=== PATIENT | male | born 1975 | race Caucasian/White ===

== ENCOUNTER 2019-07-19 09:27 | Emergency (ER) | payer SELFPAY ==
[2019-07-19 09:31] VITALS: BP 135/94
[2019-07-19] MEDS ORDERED: IPRATROPIUM/ALBUTEROL 0.5-2.5 MG/3 ML AMPUL NEB ONE (09:35)
--- NOTE | 2019-07-19 09:41 | ER Document Report ---
HPI - HPI Pain Level: Denies Notes: 44-year-old male presents to the ED for evaluation of a cough that he has been experiencing for the last 3 weeks. States the cough is productive. Denies a history of asthma or seasonal allergies. Tried [id number] Mucinex without relief. No primary care provider. Patient is a active smoker. Denies fevers, chills, chest pain,palpitations, shortness of breath, dyspnea, nausea, vomiting, diarrhea, abdominal pain, hematuria,blurred vision, double vision, loss of vision, speech changes, LH, dizziness, syncope, headaches, wheezing, ST, URI, neck pain, weakness, bowel or bladder dysfunction, saddle anesthesia, numbness or tingling in bilateral upper or lower extremities equally, muscle paralysis, weakness in bilateral upper or lower extremities equally or rash. Past Medical History - General Information source: Patient - Social History Smoking Status: Current Every Day Smoker Chew tobacco use (# tins/day): No Frequency of alcohol use: Occasional Drug Abuse: None Family History: Reviewed & Not Pertinent Patient has suicidal ideation: No Patient has homicidal ideation: No Pulmonary Medical History: Reports: Hx Bronchitis Vertical Provider Document - CONSTITUTIONAL Agree With Documented VS: Yes Exam Limitations: No Limitations General Appearance: WD/WN Notes: PHYSICAL EXAMINATION:reviewed vital signs by RN GENERAL: Well-appearing, well-nourished and in no acute distress. HEAD: Atraumatic, normocephalic. EYES: Pupils equal round and reactive to light, extraocular movements intact, sclera anicteric, conjunctiva are normal. ENT: Nares patent, oropharynx clear without exudates. Moist mucous membranes. NECK: Normal range of motion, supple without lymphadenopathy LUNGS: Wheezing heard throughout, after breathing treatment, breath sounds clear to auscultation bilaterally and equal. No wheezes rales or rhonchi. HEART: Regular rate and rhythm without murmurs ABDOMEN: Soft, nontender, nondistended abdomen. No guarding, no rebound. No masses appreciated. Musculoskeletal: Normal range of motion, no pitting or edema. No cyanosis. NEUROLOGICAL: Cranial nerves grossly intact. Normal speech, normal gait. Normal sensory, motor exams PSYCH: Normal mood, normal affect. SKIN: Warm, Dry, normal turgor, no rashes or lesions noted. - INFECTION CONTROL TRAVEL OUTSIDE OF THE [place] IN LAST 30 DAYS: No Course - Re-evaluation Re-evalutation: 07/19/19 09:42 Afebrile vital stable no distress. Nurse's notes reviewed. Patient has wheezing throughout on initial exam, after DuoNeb treatment, patient's lungs are clear to auscultation. Chest x-ray shows Discussed smoking cessation. Advised to take prednisone, Z-Bob, Tessalon Perles and to use rescue inhaler as needed. Advised to increase oral hydration. After performing a Medical Screening Examination, I estimate there is LOW risk for ACUTE CORONARY SYNDROME, PULMONARY EMBOLI, RESPIRATORY FAILURE, SEPSIS OR MENINGITIS, thus I consider the discharge disposition reasonable. I have reevaluated this patient multiple times and no significant life threatening changes are noted. The patient and I have discussed the diagnosis and risks, and we agree with discharging home with close follow-up. We also discussed returning to the Emergency Department immediately if new or worsening symptoms occur. We have discussed the symptoms which are most concerning (e.g., changing or worsening pain, trouble swallowing or breathing, neck stiffness, fever) that necessitate immediate return. Patient advised to follow-up with primary care provider within the next 24 to 48 hours. Patient is agreeable to plan of care. - Vital Signs Vital signs: Temp Pulse Resp BP Pulse Ox 97.5 F 91 20 135/94 H 96 07/19/19 09:28 07/19/19 09:28 07/19/19 09:28 07/19/19 09:28 07/19/19 09:28 Discharge - Discharge Clinical Impression: Right lower lobe pneumonia Condition: Stable Disposition: HOME, SELF-CARE Instructions: Pneumonia ([facility]), Cough Suppressant & Expectorant Medications Additional Instructions: Chest x-ray showed that he had right lower lobe pneumonia. Please take antibiotics as directed. Please eat prior to taking medication to avoid any nausea vomiting or loose stool. Yogurt daily to prevent the stool. Make sure you are taking at least 10 breaths an hour and coughing at least twice an hour. Please follow-up with your primary care provider within the next 24 to 48 hours for further evaluation of symptoms. Return immediately for any new or worsening symptoms. Follow up with primary care provider, call tomorrow to make followup appointment. Prescriptions: Albuterol Sulfate [Proair Respiclick] 90 mcg IH Q4HP PRN #1 [id number] PRN Reason: Benzonatate [Tessalon Perles 100 mg Capsule] 100 mg PO Q8HP PRN #40 capsule PRN Reason: Prednisone [Deltasone 20 mg Tablet] 3 tab PO DAILY 5 Days #15 tablet Levofloxacin [Levaquin 750 mg Tablet] 750 mg PO DAILY #10 tablet Forms: Return to Work Referrals: ISAURO WYATT MD [ACTIVE STAFF] - Follow up in 3-5 days
--- NOTE | 2019-07-19 10:11 | RADIOLOGY REPORT (SQ) ---
EXAM DESCRIPTION: CHEST 2 VIEWS COMPLETED DATE/TIME: 07/19/2019 9:56 am REASON FOR STUDY: wheeze, cough x 3 weeks, +smoker COMPARISON: None. TECHNIQUE: Frontal and lateral radiographic views of the chest acquired. NUMBER OF VIEWS: Two view. LIMITATIONS: None. FINDINGS: LUNGS AND PLEURA: Subsegmental airspace disease lateral to the right heart border. No eff usions. MEDIASTINUM AND HILAR STRUCTURES: No masses or contour abnormalities. HEART AND VASCULAR STRUCTURES: Heart normal size. No evidence for failure. BONES: No acute findings. HARDWARE: None in the chest. OTHER: No other significant finding. IMPRESSION: Right lower lobe pneumonia. TECHNICAL DOCUMENTATION: JOB ID: [id number] [employer]- All Rights Reserved Reading location - IP/workstation name: [email or web address]
== END 2019-07-19 10:30 | disposition home or self-care (01) ==
LOC: ER 09:27
DX: J18.9 Pneumonia, unspecified organism (principal); R05 Cough; F17.200 Nicotine dependence, unspecified, uncomplicated; R06.2 Wheezing
CPT/HCPCS: 94640; 99283; 71046; J7620